=== PATIENT | female | born 1935 | race Caucasian/White ===

== ENCOUNTER 2016-07-26 05:49 | Inpatient (IN) | payer MEDICARE ==
[~2016-07-26 05:49] MED LIST: ADVIL200 MG; ALEVE220 MG; ASPIR 8181 MG; ASPIRIN EC81 M1 PO; ASPIRIN325 M1 PO; ASPIRIN325 MG PO; CALCIUM 600 +1 EAC5 PO; CALCIUM 600 W/V1 TAB; CLOBETASOL PROP15 G1 TOP; COUMADIN2 M1 PO; COUMADIN2 MG PO; COUMADIN4 M1 PO; ESTROGEN; EXCEDRIN EXTRA1 EAC4 PO; FISH OIL 1,2001 CAP PO; FLAGYL500 MG PO; GLUCOSAMINE500 MG; IBUPROFEN PO; LEVAQUIN750 MG PO; LEVOTHYROXINE112 MCG PO; LISINOPRIL/HCTZ; LISINOPRIL10 MG PO; LOPRESSOR25 MG/TA6 PO; LOPRESSOR25 MG/TAB PO; LOSARTAN-HCTZ1 EAC6 PO; METOPROLOL TART25 MG PO; MULTIVITAMIN1 TAB; NEXIUM40 M1 PO; PRAVACHOL20 MG PO; PRAVASTATIN SOD20 M1 PO; PREVACID15 MG PO; PRILOSEC20 MG; PROPAFENONE HC PO; RYTHMOL150 MG PO; SYNTHROID112 MCG PO; SYNTHROID137 MC1 PO; SYNTHROID150 MC1 PO; VITAMIN D; ZANTAC150 M1 PO; ZANTAC150 MG; ZANTAC150 MG PO; ZEGERID; ZESTRIL5 MG PO
[2016-07-26 06:20] LABS: ABG CO2 ARTERIAL 23 mmol/L (21-27); ARTERIAL BLD GAS O2 SATURATION 99 % (95-98); ARTERIAL BLOOD GAS PCO2 38 mmHg (32-45); ARTERIAL PO2 180 mmHg (70-100); BICARBONATE 21 mmol/L (21-28); BLOOD GAS BASE EXCESS -3 mM/L (-/+3); PH 7.37 Units (7.35-7.45)
[2016-07-26 06:25] LABS: BASO % 0.4 % (0-2); EOS % 1.8 % (0-7); EOSINOPHIL ABSOLUTE COUNT 0.2 tho/cmm (0.0-0.7); HCT-HEMATOCRIT 41.7 % (34.0-49.0); HGB-HEMOGLOBIN 13.8 gm/dl (12.0-15.5); IMMATURE GRANULOCYTES ABSOLUTE 0.05 tho/cmm (0-0.03); IMMATURE GRANULOCYTES PERCENT 0.5 % (0-0.3); LYMPH % 20.3 % (20-45); LYMPH ABSOLUTE COUNT 1.9 tho/cmm (0.8-4.5); MCH (MEAN CORPUSCULAR HGB) 29.9 pg (28.0-32.0); MCHC MEAN CORPUSCULAR HGB CONC 33.1 % (32.0-36.0); MCV (MEAN CELL VOLUME) 90.5 fl (82.0-96.0); MEAN PLATELET VOLUME 10.6 cmc (9.4-12.4); MONOCYTE ABSOLUTE COUNT 0.6 tho/cmm (0.0-1.2); NEUTROPHIL ABSOLUTE COUNT 6.5 tho/cmm (1.6-8.0); NEUTROPHIL-AUTOMATED 6.5 tho/cmm (1.6-8.0); PLATELET COUNT 349 tho/cmm (150-450); RED BLOOD COUNT 4.61 mil/cmm (4.00-5.20); RED CELL DISTRIBUTION WIDTH 13.4 % (12.4-16.4); WHITE BLOOD COUNT 9.1 tho/cmm (4.0-10.0)
[2016-07-26 06:32] LABS: INR 2.3 INR (0.9-1.1)
[2016-07-26] MEDS ORDERED: COUMADIN2 M1 PO (06:33)
[2016-07-26] MEDS ORDERED: TOPROL XL25 M1 PO (06:39)
[2016-07-26] MEDS ORDERED: CRESTOR5 M1 PO (06:40)
[2016-07-26 06:52] LABS: ALB/GLOB RATIO 0.9 (0.8-2.0); ALBUMIN 3.2 g/dl (3.5-5.0); ALKALINE PHOSPHATASE 76 U/L (33-138); ALT/SGPT 21 U/L (12-78); BILIRUBIN,TOTAL 0.3 mg/dl (0-1.5); BLOOD UREA NITROGEN 17 mg/dl (6-24); CALCIUM 8.3 mg/dl (8.5-10.5); CARBON DIOXIDE-VENOUS 24 mmol/L (22-32); CHLORIDE 102 mmol/l (96-110); CREATININE 1.31 mg/dl (0.50-1.10); GLUCOSE 237 mg/dL (70-110); SODIUM 136 mmol/L (135-145); eGFR VALUE FOR BLACK 45 mL/Min
[2016-07-26 07:15] LABS: ABG CO2 ARTERIAL 22 mmol/L (21-27); ARTERIAL BLD GAS O2 SATURATION 99 % (95-98); ARTERIAL BLOOD GAS PCO2 32 mmHg (32-45); BICARBONATE 21 mmol/L (21-28); BLOOD GAS BASE EXCESS -2 mM/L (-/+3); PH 7.44 Units (7.35-7.45)
[2016-07-26 07:16] LABS: ARTERIAL PO2 158 mmHg (70-100)
[2016-07-26 07:38] LABS: ANION GAP 14 mmol/L (0-20); AST/SGOT 23 U/L (10-40); POTASSIUM 4.3 mmol/L (3.7-5.1)
[2016-07-26 10:53] LABS: URINE APPEARANCE CLEAR; URINE BILIRUBIN NEGATIVE (NEG); URINE BLOOD NEGATIVE (NEG); URINE COLOR PALE YELLOW; URINE GLUCOSE (UA) NEGATIVE (NEG); URINE KETONE NEGATIVE (NEG); URINE LEUKOCYTE ESTERASE NEGATIVE (NEG); URINE NITRITE NEGATIVE (NEG); URINE PH 6.5 (5.0-8.0); URINE PROTEIN NEGATIVE (NEG); URINE SPECIFIC GRAVITY 1.005 (1.003-1.030)
[2016-07-26 13:11] LABS: PROCALCITONIN <0.05 ng/ml (0.05-0.09)
[2016-07-26 18:39] LABS: INR 2.7 INR (0.9-1.1); PROTHROMBIN TIME 32.6 SECONDS (9.0-13.6)
[2016-07-27 05:45] LABS: ABG CO2 ARTERIAL 24 mmol/L (21-27); ARTERIAL BLD GAS O2 SATURATION 97 % (95-98); ARTERIAL BLOOD GAS PCO2 34 mmHg (32-45); ARTERIAL PO2 90 mmHg (70-100); BICARBONATE 23 mmol/L (21-28); BLOOD GAS BASE EXCESS 0 mM/L (-/+3); PH 7.45 Units (7.35-7.45)
[2016-07-28 04:32] LABS: BASO % 0.6 % (0-2); EOS % 2.4 % (0-7); EOSINOPHIL ABSOLUTE COUNT 0.2 tho/cmm (0.0-0.7); HCT-HEMATOCRIT 32.7 % (34.0-49.0); HGB-HEMOGLOBIN 10.7 gm/dl (12.0-15.5); IMMATURE GRANULOCYTES ABSOLUTE 0.01 tho/cmm (0-0.03); IMMATURE GRANULOCYTES PERCENT 0.1 % (0-0.3); LYMPH % 16.4 % (20-45); LYMPH ABSOLUTE COUNT 1.1 tho/cmm (0.8-4.5); MCH (MEAN CORPUSCULAR HGB) 29.2 pg (28.0-32.0); MCHC MEAN CORPUSCULAR HGB CONC 32.7 % (32.0-36.0); MCV (MEAN CELL VOLUME) 89.3 fl (82.0-96.0); MONO % 9.2 % (0-12); MONOCYTE ABSOLUTE COUNT 0.6 tho/cmm (0.0-1.2); NEUTROPHIL ABSOLUTE COUNT 4.8 tho/cmm (1.6-8.0); NEUTROPHIL-AUTOMATED 4.8 tho/cmm (1.6-8.0); NEUTROPHILS % 71.3 % (40-80); PLATELET COUNT 243 tho/cmm (150-450); RED BLOOD COUNT 3.66 mil/cmm (4.00-5.20); RED CELL DISTRIBUTION WIDTH 13.9 % (12.4-16.4); WHITE BLOOD COUNT 6.8 tho/cmm (4.0-10.0)
[2016-07-28 04:44] LABS: ANION GAP 13 mmol/L (0-20); BLOOD UREA NITROGEN 8 mg/dl (6-24); CARBON DIOXIDE-VENOUS 25 mmol/L (22-32); CHLORIDE 109 mmol/l (96-110); CREATININE 1.01 mg/dl (0.50-1.10); POTASSIUM 3.5 mmol/L (3.7-5.1); SODIUM 143 mmol/L (135-145); eGFR VALUE FOR BLACK 62 mL/Min
[2016-07-28 04:45] LABS: GLUCOSE 108 mg/dL (70-110)
[2016-07-28] MEDS ORDERED: LEVAQUIN750 M1 PO (11:45)
[2016-07-28] MEDS ORDERED: MUCINEX DM ER1 EAC1 PO (11:46)
[2016-07-28] MEDS ORDERED: BREO ELLIPTA 21 EACH INH (11:56)
[2016-07-29] MEDS ORDERED: VITAMIN D1000 UNI2 PO (00:05)
[2016-11-12] MEDS ORDERED: RANEXA500 M1 PO (22:47)
[2016-11-12] MEDS ORDERED: SOTALOL80 M1 PO (22:48)
[2016-11-12] MEDS ORDERED: AMLODIPINE BESYL5 MG PO (22:49)
[2016-11-12] MEDS ORDERED: PRAVACHOL20 M1 PO (22:51)
[2016-11-12] MEDS ORDERED: ALDACTONE25 M1 PO (22:51)
[2016-11-14] MEDS ORDERED: DULERA 200 MCG/13 G1 INH (10:57)
[2016-11-14] MEDS ORDERED: AMIODARONE HCL200 M1 PO (11:03)
[2016-11-14] MEDS ORDERED: TOPROL XL25 M1 PO (11:06)
[2016-11-14] MEDS ORDERED: COZAAR100 M1 PO (11:10)
[2016-11-14] MEDS ORDERED: PEPCID20 M1 PO (11:13)
== END 2016-07-28 12:45 | DRG 871 ==
LOC: EDMED 05:49 → EMR2 11:05 → PCUA 16:24
PROVIDERS: Emergency Medicine; Internal Medicine Pulmonary Disease; Physician Assistant; ADMIT Family Medicine
PROC: 5A09457 Assistance with Respiratory Ventilation, 24-96 Consecutive Hours, Continuous Positive Airway Pressure (ICD-10-PCS; principal; 2016-07-26)
DX: A41.9 Sepsis, unspecified organism (principal); J96.01 Acute respiratory failure with hypoxia; N17.9 Acute kidney failure, unspecified; J90 Pleural effusion, not elsewhere classified; J15.9 Unspecified bacterial pneumonia; I44.7 Left bundle-branch block, unspecified; I48.2 Chronic atrial fibrillation; J44.0 Chronic obstructive pulmonary disease with (acute) lower respiratory infection; J98.11 Atelectasis; E03.9 Hypothyroidism, unspecified; I10 Essential (primary) hypertension; R65.20 Severe sepsis without septic shock; Z66 Do not resuscitate
CPT/HCPCS: J1940; J1956; J2543; J3370; J7030

== ENCOUNTER 2016-07-28 23:46 | Inpatient (IN) | payer MEDICARE ==
[~2016-07-28 23:46] MED LIST changes: +BREO ELLIPTA 21 EACH INH; +CRESTOR5 M1 PO; +LEVAQUIN750 M1 PO; +MUCINEX DM ER1 EAC1 PO; +TOPROL XL25 M1 PO
[2016-07-29] MEDS ORDERED: VITAMIN D1000 UNI2 PO (00:05)
[2016-07-29 00:30] LABS: BASO % 0.4 % (0-2); EOS % 1.3 % (0-7); EOSINOPHIL ABSOLUTE COUNT 0.2 tho/cmm (0.0-0.7); HCT-HEMATOCRIT 33.5 % (34.0-49.0); IMMATURE GRANULOCYTES ABSOLUTE 0.03 tho/cmm (0-0.03); IMMATURE GRANULOCYTES PERCENT 0.3 % (0-0.3); LYMPH % 9.3 % (20-45); MCH (MEAN CORPUSCULAR HGB) 29.2 pg (28.0-32.0); MCHC MEAN CORPUSCULAR HGB CONC 32.8 % (32.0-36.0); MCV (MEAN CELL VOLUME) 88.9 fl (82.0-96.0); MEAN PLATELET VOLUME 9.8 cmc (9.4-12.4); MONO % 6.6 % (0-12); MONOCYTE ABSOLUTE COUNT 0.7 tho/cmm (0.0-1.2); NEUTROPHIL ABSOLUTE COUNT 9.2 tho/cmm (1.6-8.0); NEUTROPHIL-AUTOMATED 9.2 tho/cmm (1.6-8.0); NEUTROPHILS % 82.1 % (40-80); PLATELET COUNT 254 tho/cmm (150-450); RED BLOOD COUNT 3.77 mil/cmm (4.00-5.20); RED CELL DISTRIBUTION WIDTH 13.9 % (12.4-16.4)
[2016-07-29 00:32] LABS: WHITE BLOOD COUNT 11.2 tho/cmm (4.0-10.0)
[2016-07-29 00:54] LABS: BLOOD UREA NITROGEN 8 mg/dl (6-24); CALCIUM 8.2 mg/dl (8.5-10.5); CARBON DIOXIDE-VENOUS 23 mmol/L (22-32); CHLORIDE 108 mmol/l (96-110); CREATININE 0.95 mg/dl (0.50-1.10); GLUCOSE 152 mg/dL (70-110); SODIUM 143 mmol/L (135-145); eGFR VALUE FOR BLACK 66 mL/Min
[2016-07-29 00:58] LABS: ANION GAP 15 mmol/L (0-20)
[2016-07-29 08:06] LABS: BASO % 0.3 % (0-2); EOS % 0.4 % (0-7); HCT-HEMATOCRIT 35.1 % (34.0-49.0); HGB-HEMOGLOBIN 11.6 gm/dl (12.0-15.5); IMMATURE GRANULOCYTES ABSOLUTE 0.01 tho/cmm (0-0.03); IMMATURE GRANULOCYTES PERCENT 0.1 % (0-0.3); LYMPH % 10.4 % (20-45); LYMPH ABSOLUTE COUNT 1.1 tho/cmm (0.8-4.5); MCH (MEAN CORPUSCULAR HGB) 29.4 pg (28.0-32.0); MCV (MEAN CELL VOLUME) 89.1 fl (82.0-96.0); MEAN PLATELET VOLUME 9.9 cmc (9.4-12.4); MONO % 10.3 % (0-12); MONOCYTE ABSOLUTE COUNT 1.1 tho/cmm (0.0-1.2); NEUTROPHIL ABSOLUTE COUNT 8.3 tho/cmm (1.6-8.0); NEUTROPHIL-AUTOMATED 8.3 tho/cmm (1.6-8.0); NEUTROPHILS % 78.5 % (40-80); PLATELET COUNT 267 tho/cmm (150-450); RED BLOOD COUNT 3.94 mil/cmm (4.00-5.20); RED CELL DISTRIBUTION WIDTH 13.9 % (12.4-16.4); WHITE BLOOD COUNT 10.6 tho/cmm (4.0-10.0)
[2016-07-29 08:09] LABS: INR 5.6 INR (0.9-1.1); PROTHROMBIN TIME 68.5 SECONDS (9.0-13.6)
[2016-07-29 08:22] LABS: ALKALINE PHOSPHATASE 54 U/L (33-138); ANION GAP 14 mmol/L (0-20); AST/SGOT 25 U/L (10-40); BILIRUBIN,TOTAL 0.6 mg/dl (0-1.5); BLOOD UREA NITROGEN 7 mg/dl (6-24); CALCIUM 8.4 mg/dl (8.5-10.5); CARBON DIOXIDE-VENOUS 27 mmol/L (22-32); CHLORIDE 105 mmol/l (96-110); GLUCOSE 106 mg/dL (70-110); POTASSIUM 3.5 mmol/L (3.7-5.1); SODIUM 142 mmol/L (135-145); eGFR VALUE FOR BLACK 62 mL/Min
[2016-07-29 08:24] LABS: ALT/SGPT 21 U/L (12-78)
[2016-07-29 15:11] LABS: ANION GAP 12 mmol/L (0-20); BLOOD UREA NITROGEN 9 mg/dl (6-24); CALCIUM 8.3 mg/dl (8.5-10.5); CARBON DIOXIDE-VENOUS 30 mmol/L (22-32); CHLORIDE 103 mmol/l (96-110); CREATININE 1.09 mg/dl (0.50-1.10); GLUCOSE 118 mg/dL (70-110); POTASSIUM 3.7 mmol/L (3.7-5.1); SODIUM 141 mmol/L (135-145); eGFR VALUE FOR BLACK 56 mL/Min
[2016-07-30 04:16] LABS: INR 4.6 INR (0.9-1.1); PROTHROMBIN TIME 55.5 SECONDS (9.0-13.6)
[2016-07-30 04:22] LABS: ANION GAP 12 mmol/L (0-20); BLOOD UREA NITROGEN 9 mg/dl (6-24); CALCIUM 8.3 mg/dl (8.5-10.5); CARBON DIOXIDE-VENOUS 28 mmol/L (22-32); CHLORIDE 103 mmol/l (96-110); CREATININE 1.03 mg/dl (0.50-1.10); GLUCOSE 103 mg/dL (70-110); MAGNESIUM 2.3 mg/dl (1.8-2.6); POTASSIUM 3.8 mmol/L (3.7-5.1); SODIUM 139 mmol/L (135-145); eGFR VALUE FOR BLACK 60 mL/Min
[2016-07-30 08:22] LABS: INR 4.1 INR (0.9-1.1); PROTHROMBIN TIME 49.3 SECONDS (9.0-13.6)
[2016-07-30 08:30] LABS: ANION GAP 12 mmol/L (0-20); BLOOD UREA NITROGEN 9 mg/dl (6-24); CALCIUM 8.6 mg/dl (8.5-10.5); CARBON DIOXIDE-VENOUS 27 mmol/L (22-32); CHLORIDE 102 mmol/l (96-110); CREATININE 1.18 mg/dl (0.50-1.10); GLUCOSE 125 mg/dL (70-110); POTASSIUM 4.1 mmol/L (3.7-5.1); SODIUM 137 mmol/L (135-145); eGFR VALUE FOR BLACK 51 mL/Min
[2016-07-31 04:28] LABS: INR 3.2 INR (0.9-1.1); PROTHROMBIN TIME 38.3 SECONDS (9.0-13.6)
[2016-07-31 04:30] LABS: BASO % 0.4 % (0-2); EOS % 2.7 % (0-7); EOSINOPHIL ABSOLUTE COUNT 0.2 tho/cmm (0.0-0.7); HCT-HEMATOCRIT 35.6 % (34.0-49.0); HGB-HEMOGLOBIN 11.6 gm/dl (12.0-15.5); IMMATURE GRANULOCYTES ABSOLUTE 0.02 tho/cmm (0-0.03); IMMATURE GRANULOCYTES PERCENT 0.3 % (0-0.3); LYMPH % 18.3 % (20-45); LYMPH ABSOLUTE COUNT 1.4 tho/cmm (0.8-4.5); MCH (MEAN CORPUSCULAR HGB) 29.2 pg (28.0-32.0); MCHC MEAN CORPUSCULAR HGB CONC 32.6 % (32.0-36.0); MCV (MEAN CELL VOLUME) 89.7 fl (82.0-96.0); MEAN PLATELET VOLUME 9.9 cmc (9.4-12.4); MONOCYTE ABSOLUTE COUNT 0.9 tho/cmm (0.0-1.2); NEUTROPHIL ABSOLUTE COUNT 5.2 tho/cmm (1.6-8.0); NEUTROPHIL-AUTOMATED 5.2 tho/cmm (1.6-8.0); NEUTROPHILS % 67.3 % (40-80); PLATELET COUNT 278 tho/cmm (150-450); RED BLOOD COUNT 3.97 mil/cmm (4.00-5.20); RED CELL DISTRIBUTION WIDTH 14.1 % (12.4-16.4); WHITE BLOOD COUNT 7.8 tho/cmm (4.0-10.0)
[2016-07-31 04:32] LABS: ALB/GLOB RATIO 0.9 (0.8-2.0); ALBUMIN 2.9 g/dl (3.5-5.0); ALKALINE PHOSPHATASE 49 U/L (33-138); ALT/SGPT 20 U/L (12-78); ANION GAP 12 mmol/L (0-20); AST/SGOT 17 U/L (10-40); BILIRUBIN,TOTAL 0.4 mg/dl (0-1.5); BLOOD UREA NITROGEN 11 mg/dl (6-24); CALCIUM 8.7 mg/dl (8.5-10.5); CARBON DIOXIDE-VENOUS 28 mmol/L (22-32); CHLORIDE 101 mmol/l (96-110); CREATININE 1.12 mg/dl (0.50-1.10); GLUCOSE 108 mg/dL (70-110); MAGNESIUM 2.2 mg/dl (1.8-2.6); SODIUM 137 mmol/L (135-145); eGFR VALUE FOR BLACK 54 mL/Min
[2016-07-31] MEDS ORDERED: LASIX40 M1 PO (15:12)
[2016-11-12] MEDS ORDERED: RANEXA500 M1 PO (22:47)
[2016-11-12] MEDS ORDERED: SOTALOL80 M1 PO (22:48)
[2016-11-12] MEDS ORDERED: AMLODIPINE BESYL5 MG PO (22:49)
[2016-11-12] MEDS ORDERED: PRAVACHOL20 M1 PO (22:51)
[2016-11-12] MEDS ORDERED: ALDACTONE25 M1 PO (22:51)
[2016-11-14] MEDS ORDERED: DULERA 200 MCG/13 G1 INH (10:57)
[2016-11-14] MEDS ORDERED: AMIODARONE HCL200 M1 PO (11:03)
[2016-11-14] MEDS ORDERED: TOPROL XL25 M1 PO (11:06)
[2016-11-14] MEDS ORDERED: COZAAR100 M1 PO (11:10)
[2016-11-14] MEDS ORDERED: PEPCID20 M1 PO (11:13)
== END 2016-07-31 16:30 | disposition home health service (06) | DRG 291 ==
LOC: EDMED 23:46 → EMR2 07-29 02:36 → 5WD 07-29 03:40 → PCUB 07-29 04:41
PROVIDERS: Emergency Medicine; Internal Medicine; Internal Medicine Cardiovascular Disease; Registered Nurse; ADMIT Hospitalist
PROC: 5A09357 Assistance with Respiratory Ventilation, Less than 24 Consecutive Hours, Continuous Positive Airway Pressure (ICD-10-PCS; principal; 2016-07-29)
DX: I11.0 Hypertensive heart disease with heart failure (principal); J96.01 Acute respiratory failure with hypoxia; J18.9 Pneumonia, unspecified organism; I27.2 Other secondary pulmonary hypertension; I48.2 Chronic atrial fibrillation; I34.0 Nonrheumatic mitral (valve) insufficiency; D64.9 Anemia, unspecified; I50.33 Acute on chronic diastolic (congestive) heart failure; Z79.01 Long term (current) use of anticoagulants; E87.6 Hypokalemia; Z88.8 Allergy status to other drugs, medicaments and biological substances; Z88.2 Allergy status to sulfonamides; Z88.1 Allergy status to other antibiotic agents; Z66 Do not resuscitate; E03.9 Hypothyroidism, unspecified; R73.9 Hyperglycemia, unspecified; I44.7 Left bundle-branch block, unspecified; I35.1 Nonrheumatic aortic (valve) insufficiency
CPT/HCPCS: J1940; J1956; J3475